=== PATIENT | female | born 1980 | race Caucasian/White ===

== ENCOUNTER → 2021-08-20 08:43 | Outpatient (BNVA) | payer OTHER, SELFPAY | PROVIDERS: Family Provider Family Medicine; PCP Electrodiagnostic Medicine; Visit Provider Nurse Practitioner Family | DX: R32 Unspecified urinary incontinence (principal); N20.9 Urinary calculus, unspecified; N39.9 Disorder of urinary system, unspecified | CPT/HCPCS: 81003 ==

== ENCOUNTER → 2021-12-30 11:52 | Outpatient (BNVA) | payer OTHER, SELFPAY | PROVIDERS: Family Provider Family Medicine; PCP Family Medicine; Visit Provider Family Medicine | DX: Z00.00 Encounter for general adult medical examination without abnormal findings (principal); R23.8 Other skin changes | CPT/HCPCS: 85025 ==

== ENCOUNTER 2022-02-17 14:59 | Outpatient (CLI) | payer OTHER, SELFPAY ==
--- NOTE | 2022-02-17 15:00 | XR_ITS ---
WS: [id number] K[facility], AP view, 02/17/2022 Clinical Data: Urolithiasis Comparison: None. Findings: No abnormal intraabdominal masses or calcifications are seen. There is no dilatated small bowel or ev idence of obstruction. There are phleboliths in the true pelvis. XR/XR KUB [id number] Impression: Negative KUB.
== END 2022-02-17 15:00 | disposition home or self-care (01) ==
LOC: RAD 15:00
PROVIDERS: PCP Family Medicine; Visit Provider Urology
DX: N20.9 Urinary calculus, unspecified (principal)
CPT/HCPCS: 74018; 81003

== ENCOUNTER → 2022-07-06 16:55 | Outpatient (BNVA) | payer OTHER, SELFPAY | PROVIDERS: PCP Family Medicine; Visit Provider Family Medicine | DX: R10.2 Pelvic and perineal pain (principal) | CPT/HCPCS: 81000 ==

== ENCOUNTER → 2022-08-17 16:16 | Outpatient (BNVA) | payer OTHER, SELFPAY | PROVIDERS: PCP Family Medicine; Visit Provider Urology | DX: R32 Unspecified urinary incontinence (principal); N20.9 Urinary calculus, unspecified | CPT/HCPCS: 81003 ==